=== PATIENT | female | born 1950 | race Caucasian/White ===

== ENCOUNTER 2022-10-15 13:25 | Emergency (ER) | payer MEDICARE ==
[~2022-10-15] VITALS: Ht 177.8 cm; Wt 113.4 kg
[2022-10-15] MEDS ORDERED: IPRATROPIUM BROMIDE 0.5 MG/2.5 ML NEBU NEB ONE (14:15)
[2022-10-15] MEDS ORDERED: ALBUTEROL SULFATE 2.5 MG/3 ML NEBU NEB ONE (14:15)
[2022-10-15] MEDS ORDERED: methylPREDNISolone SOD SUCC 125 MG/2 ML VIAL IV ONE (14:15)
[2022-10-15 14:35] LABS: BASOPHILS # (AUTO) 0.1 K/UL (0.0-0.2); BASOPHILS % (AUTO) 0.7 % (0.0-2.0); EOSINOPHILS # (AUTO) 0.3 K/uL (0.0-0.7); EOSINOPHILS % (AUTO) 3.7 % (0.0-7.0); HEMATOCRIT 39.6 % (31.2-41.9); HEMOGLOBIN 13.2 g/dL (10.9-14.3); LYMPHOCYTES # (AUTO) 0.8 K/uL (0.8-4.8); LYMPHOCYTES % (AUTO) 11.4 % (20.5-51.5); MEAN CORPUSCULAR HEMOGLOBIN 29.8 uug (24.7-32.8); MEAN CORPUSCULAR HGB CONC 33 g/dL (32.3-35.6); MEAN CORPUSCULAR VOLUME 89.6 fL (75.5-95.3); MONOCYTES # (AUTO) 0.7 K/uL (0.1-1.30); MONOCYTES % (AUTO) 8.9 % (0.0-11.0); NEUTROPHILS # (AUTO) 5.5 K/uL (1.8-8.9); NEUTROPHILS % (AUTO) 75.3 % (38.5-71.5); PLATELET COUNT (AUTO) 255 K/uL (179-408); RED BLOOD CELL COUNT(AUTO) 4.42 MIL/uL (3.63-4.92); RED CELL DISTRIBUTION WIDTH 13.7 % (12.3-17.7); WHITE BLOOD COUNT (AUTO) 7.3 K/uL (3.8-11.8)
[2022-10-15 14:38] LABS: DIFFERENTIAL COMMENT 1
[2022-10-15 14:46] LABS: CALCIUM 8.7 mg/dL (8.5-10.1); CARBON DIOXIDE 26 mmol/L (21-32); CHLORIDE 106 mmol/L (98-107); GLUCOSE 129 mg/dL (74-106); POTASSIUM 4.2 mmol/L (3.5-5.1); SODIUM SERUM 141 mmol/L (136-145); UREA NITROGEN, BLOOD 13 mg/dL (7-18)
[2022-10-15] MEDS ORDERED: methylPREDNISolone SOD SUCC 125 MG/2 ML VIAL ONE (14:48)
[2022-10-15 15:06] LABS: ALANINE AMINOTRANSFERASE 21 U/L (14-59); ALBUMIN 3.4 g/dL (3.4-5.0); ALKALINE PHOSPHATASE 119 U/L (50-136); ASPARTATE AMINOTRANSFERASE 10 U/L (15-37); BILIRUBIN,DIRECT 0.2 mg/dL (0.0-0.2); BILIRUBIN,TOTAL 0.5 mg/dL (0.2-1.0); NT-PRO BNP 163 pg/mL (0-125); TOTAL PROTEIN, SERUM 7.3 g/dL (6.4-8.2)
[2022-10-15] MEDS ORDERED: IPRATROPIUM BROMIDE 0.5 MG/2.5 ML NEBU ONE (15:15)
[2022-10-15] MEDS ORDERED: ALBUTEROL SULFATE 2.5 MG/3 ML NEBU ONE (15:15)
[2022-10-15 15:20] VITALS: O2SAT 95
[2022-10-15] MEDS ORDERED: ALBU18HF2 INH (16:03)
[2022-10-15] MEDS ORDERED: PRED20TA PO (16:03)
[2022-10-15 16:35] VITALS: O2SAT 99
[2022-10-15 17:17] VITALS: BP 117/62
== END 2022-10-15 17:17 | disposition home or self-care (01) ==
LOC: ER 13:25
DX: J44.1 Chronic obstructive pulmonary disease with (acute) exacerbation (principal); E11.9 Type 2 diabetes mellitus without complications; Z88.0 Allergy status to penicillin
CPT/HCPCS: 99285; 96374; 71045; 80076; 80048; 83880; 85025; 84484; 36415; 93005; 94644; J2930; A4663; J3590

== ENCOUNTER 2022-10-20 10:01 | Inpatient (IN) | payer MEDICARE ==
[~2022-10-20] VITALS: Ht 182.9 cm; Wt 117.9 kg
[~2022-10-20 10:01] MED LIST: ALBU18HF2 INH; PRED20TA PO
[2022-10-20] MEDS ORDERED: ALBUTEROL SULFATE 2.5 MG/3 ML NEBU NEB ONE (10:30)
[2022-10-20] MEDS ORDERED: AZITHROMYCIN 250 MG TABLET PO ONE (10:30)
[2022-10-20] MEDS ORDERED: IPRATROPIUM BROMIDE 0.5 MG/2.5 ML NEBU NEB ONE (10:30)
[2022-10-20] MEDS ORDERED: methylPREDNISolone SOD SUCC 125 MG/2 ML VIAL IV ONE (10:30)
[2022-10-20] MEDS ORDERED: CEFTRIAXONE 1 G in IV DEXTROSE 5% 50 ML IV ONE (10:30)
[2022-10-20] MEDS ORDERED: [UNRECOGNIZED DRUG - OTHER] IM (10:31)
[2022-10-20] MEDS ORDERED: QUET300T2 PO (10:31)
[2022-10-20] MEDS ORDERED: LOSA100T31 PO (10:31)
[2022-10-20] MEDS ORDERED: GABA600T12 PO (10:31)
[2022-10-20] MEDS ORDERED: GABA-532 PO (10:31)
[2022-10-20] MEDS ORDERED: LAMO150T2 PO (10:31)
[2022-10-20] MEDS ORDERED: METF-440 PO (10:31)
[2022-10-20] MEDS ORDERED: ALBUTEROL SULFATE 2.5 MG/3 ML NEBU ONE (10:33)
[2022-10-20] MEDS ORDERED: IPRATROPIUM BROMIDE 0.5 MG/2.5 ML NEBU ONE (10:33)
[2022-10-20 10:35] VITALS: O2SAT 93
[2022-10-20] MEDS ORDERED: methylPREDNISolone SOD SUCC 125 MG/2 ML VIAL ONE (10:37)
[2022-10-20] MEDS ORDERED: CEFTRIAXONE /D5W 50ML IVPB **ER PYXIS IV ONE (10:37)
[2022-10-20] MEDS ORDERED: AZITHROMYCIN 250 MG TABLET ONE (10:37)
[2022-10-20 11:04] LABS: BASOPHILS % (AUTO) 0.3 % (0.0-2.0); EOSINOPHILS # (AUTO) 0.3 K/uL (0.0-0.7); EOSINOPHILS % (AUTO) 2.6 % (0.0-7.0); HEMATOCRIT 40.7 % (31.2-41.9); HEMOGLOBIN 13.5 g/dL (10.9-14.3); LYMPHOCYTES # (AUTO) 1.1 K/uL (0.8-4.8); LYMPHOCYTES % (AUTO) 10.9 % (20.5-51.5); MEAN CORPUSCULAR HEMOGLOBIN 29.8 uug (24.7-32.8); MEAN CORPUSCULAR HGB CONC 33 g/dL (32.3-35.6); MONOCYTES # (AUTO) 0.7 K/uL (0.1-1.30); MONOCYTES % (AUTO) 6.3 % (0.0-11.0); NEUTROPHILS # (AUTO) 8.4 K/uL (1.8-8.9); NEUTROPHILS % (AUTO) 79.9 % (38.5-71.5); PLATELET COUNT (AUTO) 294 K/uL (179-408); RED BLOOD CELL COUNT(AUTO) 4.52 MIL/uL (3.63-4.92); RED CELL DISTRIBUTION WIDTH 13.9 % (12.3-17.7); WHITE BLOOD COUNT (AUTO) 10.5 K/uL (3.8-11.8)
[2022-10-20 11:17] LABS: DIFFERENTIAL COMMENT 1
[2022-10-20 11:18] LABS: ALANINE AMINOTRANSFERASE 40 U/L (14-59); ALBUMIN 3.4 g/dL (3.4-5.0); ALKALINE PHOSPHATASE 109 U/L (50-136); ASPARTATE AMINOTRANSFERASE 13 U/L (15-37); BILIRUBIN,DIRECT 0.2 mg/dL (0.0-0.2); BILIRUBIN,TOTAL 0.5 mg/dL (0.2-1.0); CALCIUM 9.1 mg/dL (8.5-10.1); CARBON DIOXIDE 29 mmol/L (21-32); CHLORIDE 100 mmol/L (98-107); GLUCOSE 167 mg/dL (74-106); NT-PRO BNP 856 pg/mL (0-125); POTASSIUM 4.2 mmol/L (3.5-5.1); SODIUM SERUM 137 mmol/L (136-145); TOTAL PROTEIN, SERUM 6.7 g/dL (6.4-8.2); UREA NITROGEN, BLOOD 22 mg/dL (7-18)
[2022-10-20 11:35] VITALS: O2SAT 99
[2022-10-20] MEDS ORDERED: GABA300C PO (15:32)
[2022-10-20] MEDS ORDERED: LAMO100T17 PO (15:33)
[2022-10-20] MEDS ORDERED: QUET100T32 PO (15:37)
[2022-10-20] MEDS ORDERED: FLUP25VI4 IM (15:44)
[2022-10-20 15:56] VITALS: BP 134/75; TEMP 98.4; O2SAT 94
[2022-10-20] MEDS ORDERED: MAGNESIUM HYDROXIDE 30 ML LIQUID UDC PO PRN (18:30)
[2022-10-20] MEDS ORDERED: ONDANSETRON 4 MG/2 ML VIAL IV PRN (18:30)
[2022-10-20] MEDS ORDERED: IPRATROPIUM BROMIDE 0.5 MG/2.5 ML NEBU NEB PRN (18:30)
[2022-10-20] MEDS ORDERED: ACETAMINOPHEN 325 MG TABLET PO PRN (18:30)
[2022-10-20] MEDS ORDERED: ALBUTEROL SULFATE 2.5 MG/ 0.5 ML NEBU NEB PRN (18:30)
[2022-10-20] MEDS ORDERED: REMEDY ESSENTIAL ZINC PASTE 113 GM TP PRN (18:30)
[2022-10-20] MEDS ORDERED: SWABABLE VALVE TRANSFER SET EA MC ONE (18:51)
[2022-10-20] MEDS ORDERED: IOHEXOL 350 100 ML INFUS..BTL ONE (18:51)
[2022-10-20] MEDS ORDERED: IV NORMAL SALINE 250 ML IV ONE (18:51)
[2022-10-20 20:25] VITALS: BP 143/77; TEMP 98.1; O2SAT 94
[2022-10-20] MEDS ORDERED: CEFEPIME HCL 1 G in IV DEXTROSE 5% 50 ML IV SCH ×2 (21:00→22:00)
[2022-10-20] MEDS: methylPREDNISolone SOD SUCC 40 MG/ML VIAL IV SCH (21:48)
[2022-10-20] MEDS: ENOXAPARIN SODIUM 40 MG/0.4 ML DISP.SYRIN SQ SCH (21:50)
[2022-10-20] MEDS: CEFEPIME HCL 1 G in IV DEXTROSE 5% 50 ML IV SCH (22:14)
[2022-10-21] MEDS: ZOLPIDEM 5 MG TABLET PO PRN ×2 (02:10→21:48)
[2022-10-21] MEDS: methylPREDNISolone SOD SUCC 40 MG/ML VIAL IV SCH ×3 (05:42→21:11)
[2022-10-21] MEDS: CEFEPIME HCL 1 G in IV DEXTROSE 5% 50 ML IV SCH ×3 (05:42→21:28)
[2022-10-21 05:43] VITALS: BP 155/75; TEMP 97.7; O2SAT 97
[2022-10-21 07:08] LABS: BASOPHILS % (AUTO) 0.1 % (0.0-2.0); HEMATOCRIT 38.7 % (31.2-41.9); HEMOGLOBIN 12.7 g/dL (10.9-14.3); LYMPHOCYTES # (AUTO) 0.5 K/uL (0.8-4.8); LYMPHOCYTES % (AUTO) 3.9 % (20.5-51.5); MEAN CORPUSCULAR HEMOGLOBIN 29.2 uug (24.7-32.8); MEAN CORPUSCULAR HGB CONC 33 g/dL (32.3-35.6); MEAN CORPUSCULAR VOLUME 89.5 fL (75.5-95.3); MONOCYTES # (AUTO) 0.3 K/uL (0.1-1.30); MONOCYTES % (AUTO) 2.1 % (0.0-11.0); NEUTROPHILS # (AUTO) 11.5 K/uL (1.8-8.9); NEUTROPHILS % (AUTO) 93.9 % (38.5-71.5); PLATELET COUNT (AUTO) 295 K/uL (179-408); RED BLOOD CELL COUNT(AUTO) 4.33 MIL/uL (3.63-4.92); RED CELL DISTRIBUTION WIDTH 13.8 % (12.3-17.7); WHITE BLOOD COUNT (AUTO) 12.2 K/uL (3.8-11.8)
[2022-10-21 07:29] LABS: DIFFERENTIAL COMMENT 1
[2022-10-21 07:52] LABS: CALCIUM 9.1 mg/dL (8.5-10.1); CREATININE 0.9 mg/dL (0.6-1.3); MAGNESIUM 1.9 mg/dL (1.8-2.4); PHOSPHOROUS 3.9 mg/dL (2.5-4.9); POTASSIUM 4.8 mmol/L (3.5-5.1)
[2022-10-21] MEDS ORDERED: IOHEXOL 350 100 ML INFUS..BTL ONE (08:55)
[2022-10-21] MEDS ORDERED: SWABABLE VALVE TRANSFER SET EA MC ONE (08:55)
[2022-10-21] MEDS ORDERED: IV NORMAL SALINE 250 ML IV ONE (08:55)
[2022-10-21] MEDS: PANTOPRAZOLE SODIUM 40 MG VIAL IV SCH (10:53)
[2022-10-21 11:35] VITALS: BP 172/76; TEMP 98.3; O2SAT 93
[2022-10-21] MEDS ORDERED: ALBUTEROL SULFATE 8 GM HFA.AER.AD INH PRN (12:00)
[2022-10-21] MEDS ORDERED: hydrALAZINE HCL 25 MG TABLET PO PRN (12:00)
[2022-10-21] MEDS: LOSARTAN POTASSIUM 50 MG TABLET PO SCH (13:32)
[2022-10-21 16:00] VITALS: BP 143/77; TEMP 97.9; O2SAT 95
[2022-10-21] MEDS: METFORMIN HCL 500 MG TABLET PO SCH (18:45)
[2022-10-21] MEDS: GABAPENTIN 100 MG CAPSULE PO SCH (18:45)
[2022-10-21 20:00] VITALS: BP 150/80; TEMP 98.2; O2SAT 93
[2022-10-21] MEDS ORDERED: QUETIAPINE FUMARATE 100 MG TABLET PO PRN (21:00)
[2022-10-21] MEDS: GABAPENTIN 300 MG CAPSULE PO SCH (21:11)
[2022-10-21] MEDS: ENOXAPARIN SODIUM 40 MG/0.4 ML DISP.SYRIN SQ SCH (21:13)
[2022-10-22] VITALS (7 sets, daily range): BP systolic 131–156; BP diastolic 63–85; TEMP 97.5–98.5; O2SAT 93–99
[2022-10-22] MEDS: GUAIFENESIN/DEXTROMETHORPHAN 5 ML UDC PO PRN (02:55)
[2022-10-22] MEDS: CEFEPIME HCL 1 G in IV DEXTROSE 5% 50 ML IV SCH ×3 (05:26→20:53)
[2022-10-22] MEDS: methylPREDNISolone SOD SUCC 40 MG/ML VIAL IV SCH ×2 (05:42→20:54)
[2022-10-22] MEDS: METFORMIN HCL 500 MG TABLET PO SCH ×2 (08:23→17:38)
[2022-10-22] MEDS: LOSARTAN POTASSIUM 50 MG TABLET PO SCH (08:23)
[2022-10-22 08:24] LABS: HEMATOCRIT 39.5 % (31.2-41.9); HEMOGLOBIN 12.9 g/dL (10.9-14.3); LYMPHOCYTES # (AUTO) 0.4 K/uL (0.8-4.8); LYMPHOCYTES % (AUTO) 2.3 % (20.5-51.5); MEAN CORPUSCULAR HEMOGLOBIN 29.7 uug (24.7-32.8); MEAN CORPUSCULAR HGB CONC 33 g/dL (32.3-35.6); MEAN CORPUSCULAR VOLUME 90.7 fL (75.5-95.3); MONOCYTES # (AUTO) 0.6 K/uL (0.1-1.30); MONOCYTES % (AUTO) 3.2 % (0.0-11.0); NEUTROPHILS # (AUTO) 16.9 K/uL (1.8-8.9); NEUTROPHILS % (AUTO) 94.5 % (38.5-71.5); PLATELET COUNT (AUTO) 315 K/uL (179-408); RED BLOOD CELL COUNT(AUTO) 4.36 MIL/uL (3.63-4.92); RED CELL DISTRIBUTION WIDTH 14.3 % (12.3-17.7); WHITE BLOOD COUNT (AUTO) 17.9 K/uL (3.8-11.8)
[2022-10-22] MEDS: PANTOPRAZOLE SODIUM 40 MG VIAL IV SCH (08:24)
[2022-10-22] MEDS: LAMOTRIGINE 100 MG TABLET PO SCH (08:24)
[2022-10-22 08:25] LABS: DIFFERENTIAL COMMENT 1
[2022-10-22] MEDS: GABAPENTIN 100 MG CAPSULE PO SCH ×2 (08:49→17:04)
[2022-10-22 09:06] LABS: CALCIUM 9.1 mg/dL (8.5-10.1); CREATININE 0.8 mg/dL (0.6-1.3); MAGNESIUM 2.2 mg/dL (1.8-2.4); PHOSPHOROUS 3.8 mg/dL (2.5-4.9)
[2022-10-22 09:29] LABS: POTASSIUM 5.4 mmol/L (3.5-5.1)
[2022-10-22] MEDS: GABAPENTIN 300 MG CAPSULE PO SCH (20:52)
[2022-10-22] MEDS: ENOXAPARIN SODIUM 40 MG/0.4 ML DISP.SYRIN SQ SCH (21:19)
[2022-10-22] MEDS: ZOLPIDEM 5 MG TABLET PO PRN (22:06)
[2022-10-23] VITALS (7 sets, daily range): BP systolic 138–165; BP diastolic 70–95; TEMP 97.7–98.3; O2SAT 93–98
[2022-10-23] MEDS: CEFEPIME HCL 1 G in IV DEXTROSE 5% 50 ML IV SCH ×3 (06:16→21:32)
[2022-10-23] MEDS: PANTOPRAZOLE SODIUM 40 MG TABLET.DR PO SCH (06:16)
[2022-10-23 07:25] LABS: BASOPHILS % (AUTO) 0.2 % (0.0-2.0); HEMATOCRIT 40.8 % (31.2-41.9); HEMOGLOBIN 13.3 g/dL (10.9-14.3); LYMPHOCYTES # (AUTO) 0.7 K/uL (0.8-4.8); LYMPHOCYTES % (AUTO) 4.8 % (20.5-51.5); MEAN CORPUSCULAR HEMOGLOBIN 29.4 uug (24.7-32.8); MEAN CORPUSCULAR HGB CONC 33 g/dL (32.3-35.6); MONOCYTES # (AUTO) 0.6 K/uL (0.1-1.30); MONOCYTES % (AUTO) 4.2 % (0.0-11.0); NEUTROPHILS # (AUTO) 12.8 K/uL (1.8-8.9); NEUTROPHILS % (AUTO) 90.8 % (38.5-71.5); PLATELET COUNT (AUTO) 359 K/uL (179-408); RED BLOOD CELL COUNT(AUTO) 4.53 MIL/uL (3.63-4.92); RED CELL DISTRIBUTION WIDTH 14.1 % (12.3-17.7); WHITE BLOOD COUNT (AUTO) 14.1 K/uL (3.8-11.8)
[2022-10-23 07:26] LABS: DIFFERENTIAL COMMENT 1
[2022-10-23 07:53] LABS: CALCIUM 9.5 mg/dL (8.5-10.1); CREATININE 0.9 mg/dL (0.6-1.3); MAGNESIUM 2.1 mg/dL (1.8-2.4); PHOSPHOROUS 4.1 mg/dL (2.5-4.9); POTASSIUM 4.8 mmol/L (3.5-5.1)
[2022-10-23] MEDS: METFORMIN HCL 500 MG TABLET PO SCH ×2 (08:43→17:24)
[2022-10-23] MEDS: LOSARTAN POTASSIUM 50 MG TABLET PO SCH (08:44)
[2022-10-23] MEDS: LAMOTRIGINE 100 MG TABLET PO SCH (08:44)
[2022-10-23] MEDS: methylPREDNISolone SOD SUCC 40 MG/ML VIAL IV SCH ×2 (08:45→21:28)
[2022-10-23] MEDS: GABAPENTIN 100 MG CAPSULE PO SCH ×2 (08:46→17:24)
[2022-10-23] MEDS: GUAIFENESIN/DEXTROMETHORPHAN 5 ML UDC PO PRN ×2 (17:34→23:13)
[2022-10-23] MEDS: GABAPENTIN 300 MG CAPSULE PO SCH (21:28)
[2022-10-23] MEDS: ENOXAPARIN SODIUM 40 MG/0.4 ML DISP.SYRIN SQ SCH (22:13)
[2022-10-23] MEDS: ZOLPIDEM 5 MG TABLET PO PRN (23:14)
[2022-10-24] VITALS: BP 138/81; TEMP 98.1; O2SAT 94
[2022-10-24 04:00] VITALS: BP 147/72; TEMP 98.1; O2SAT 97
[2022-10-24] MEDS: GUAIFENESIN/DEXTROMETHORPHAN 5 ML UDC PO PRN (04:18)
[2022-10-24 05:16] VITALS: BP 165/95; TEMP 98.3
[2022-10-24] MEDS: PANTOPRAZOLE SODIUM 40 MG TABLET.DR PO SCH (06:12)
[2022-10-24] MEDS: CEFEPIME HCL 1 G in IV DEXTROSE 5% 50 ML IV SCH (06:12)
[2022-10-24 07:05] LABS: BASOPHILS % (AUTO) 0.2 % (0.0-2.0); HEMATOCRIT 39.2 % (31.2-41.9); HEMOGLOBIN 12.9 g/dL (10.9-14.3); LYMPHOCYTES # (AUTO) 0.6 K/uL (0.8-4.8); LYMPHOCYTES % (AUTO) 4.7 % (20.5-51.5); MEAN CORPUSCULAR HEMOGLOBIN 29.8 uug (24.7-32.8); MEAN CORPUSCULAR HGB CONC 33 g/dL (32.3-35.6); MEAN CORPUSCULAR VOLUME 90.4 fL (75.5-95.3); MONOCYTES # (AUTO) 0.6 K/uL (0.1-1.30); MONOCYTES % (AUTO) 4.6 % (0.0-11.0); NEUTROPHILS # (AUTO) 10.8 K/uL (1.8-8.9); NEUTROPHILS % (AUTO) 90.5 % (38.5-71.5); PLATELET COUNT (AUTO) 301 K/uL (179-408); RED BLOOD CELL COUNT(AUTO) 4.34 MIL/uL (3.63-4.92); RED CELL DISTRIBUTION WIDTH 14.3 % (12.3-17.7); WHITE BLOOD COUNT (AUTO) 11.9 K/uL (3.8-11.8)
[2022-10-24 07:21] LABS: DIFFERENTIAL COMMENT 1
[2022-10-24 07:26] LABS: CALCIUM 9.5 mg/dL (8.5-10.1); CREATININE 0.8 mg/dL (0.6-1.3); MAGNESIUM 1.9 mg/dL (1.8-2.4); PHOSPHOROUS 4.2 mg/dL (2.5-4.9); POTASSIUM 4.4 mmol/L (3.5-5.1)
[2022-10-24] MEDS: METFORMIN HCL 500 MG TABLET PO SCH (09:40)
[2022-10-24] MEDS: GABAPENTIN 100 MG CAPSULE PO SCH (09:40)
[2022-10-24] MEDS: LAMOTRIGINE 100 MG TABLET PO SCH (09:40)
[2022-10-24] MEDS: LOSARTAN POTASSIUM 50 MG TABLET PO SCH (09:42)
[2022-10-24] MEDS ORDERED: PRED20TA PO (09:48)
[2022-10-24] MEDS ORDERED: METH4TAB21 PO (09:48)
[2022-10-24 12:00] VITALS: BP 171/71; TEMP 97.6; O2SAT 96
[2022-10-24] MEDS ORDERED: hydrALAZINE HCL 10 MG TABLET PO ONE (12:00)
[2022-10-24 12:45] VITALS: BP 158/81; TEMP 97.6; O2SAT 94
[2022-10-24] MEDS ORDERED: predniSONE 20 MG TABLET PO SCH (18:00)
[2022-11-07] MEDS ORDERED: FLUPHENAZINE DECANOATE 25 MG/ML 5ML VIAL IM SCH (12:00)
== END 2022-10-24 15:15 | disposition home or self-care (01) | DRG 177 ==
LOC: ER 10:06 → TELE3 15:24
PROVIDERS: ADMIT Nurse Practitioner Acute Care; ATTEND Nurse Practitioner Acute Care
DX: U07.1 COVID-19 (principal); J12.82 Pneumonia due to coronavirus disease 2019; D68.69 Other thrombophilia; J44.0 Chronic obstructive pulmonary disease with (acute) lower respiratory infection; J44.1 Chronic obstructive pulmonary disease with (acute) exacerbation; J20.8 Acute bronchitis due to other specified organisms; E11.9 Type 2 diabetes mellitus without complications; I10 Essential (primary) hypertension; E66.01 Morbid (severe) obesity due to excess calories; F31.9 Bipolar disorder, unspecified; Z87.891 Personal history of nicotine dependence; Z88.0 Allergy status to penicillin; Z90.2 Acquired absence of lung [part of]; Z85.118 Personal history of other malignant neoplasm of bronchus and lung; Z79.84 Long term (current) use of oral hypoglycemic drugs; Z68.35 Body mass index [BMI] 35.0-35.9, adult; Z80.3 Family history of malignant neoplasm of breast; D72.829 Elevated white blood cell count, unspecified; T38.0X5A Adverse effect of glucocorticoids and synthetic analogues, initial encounter; Y92.89 Other specified places as the place of occurrence of the external cause
CPT/HCPCS: 36415; 71045; 71275; 83605; 83735; 84100; 84484; 85025; 87040; 93005; A4663; A6209; A6213; C9113; G0378; J0692; J0696; J1650; J2920; J2930; J3535; J3590; Q0144; Q9967